=== PATIENT | female | born 1985 | race Caucasian/White ===

== ENCOUNTER → 2018-12-11 11:29 | Outpatient (CLI) | payer OTHER, SELFPAY ==
--- NOTE | 2018-12-11 11:31 | RAD_ITS ---
STUDY: X-RAY - PELVIS AND LEFT HIP REASON FOR EXAM: Female, 33 years old. Hip pain. TECHNIQUE: 3 views of the pelvis and hip. COMPARISON: None. FINDINGS: There is a non-specific bowel gas pattern. Normal visualized soft tissue structures. Normal bilateral iliac wings, sacroiliac joints and visualized sacrum. Normal bilateral superior and inferior pubic rami. Normal pubic symphysis. Normal bilateral ischial tuberosities. Status post a remote posterior slip capital femoral epiphysis that has been repaired with 1 partially threaded femoral head and neck screw. Marginal osteophytosis of the femoral head. Normal acetabulum. There is mild articular joint space narrowing of the hip. RAD/HIP, UNI W/ Pelvis 2-3 Views IMPRESSION: Mild degenerative arthrosis of the left hip status post remote slipped capital femoral epiphysis with screw stabilization. Electronically Signed: Jamia Ozuna MD at 18:13 EDT , Service support ,
== END ==
LOC: HPRAD 11:31
PROVIDERS: Referring Provider Orthopaedic Surgery; Visit Provider Orthopaedic Surgery
DX: M25.552 Pain in left hip (principal)
CPT/HCPCS: 73502

== ENCOUNTER 2019-01-13 08:00 | Outpatient (RCR) | payer OTHER, SELFPAY ==
--- NOTE | 2018-12-22 12:02 | HP.PTEVAL ---
Patient's Visit Information VANIA BUSBY is a 33 year old F referred to Physical Therapy by Amrit Estes DO with a diagnosis of L hip OA. Date of Evaluation: 12/22/18 Physical Therapist: Lenny Muñoz PT, ATC - Visit Plan Frequency: 2-3x /Week Duration: 4-6 Weeks Plan: L hip stretching and strengthening, balance and proprio, core stab ex's, nustep, and HEP - Subjective Findings: Pt reports she has had intermittent L hip pain since she had surgery at the age of 13. Pt reports this episode has been constant for the past 3 weeks. Pt reports she finally went to the orthopedic surgeon where she had xrqys taken which revealed OA. Pt surrently is employed by [employer] and is on her feet for 9 hours at a time. Pt denies L LE tingling or numbness. Pt notes sleep difficulty without the use of pain meds. Pt reports prolonged standing and walking increases pain. Pt also notes prolonged sitting increases pain. 4/10 pain at rest, 8/10 at worst (when she gets off work) - Pain L hip pain Pain Intensity (Out of 10): 4 Pain Intensity Range: 8 - Objective Neuro: B LE sensation is WNL to light touch. B patellar reflex= 2/3. MMT: L hip strength is 4-/5. All other B LE MMT is 5/5 throughout. ROM: BLE's are WNL. Gait: Pt is able to ambulate greater than 1000' without difficulty - Goals Goal 1:: Increase L LE strength x 1 grade to aid with IADL's Goal Time Frame: 4-6 Weeks Goal 2:: Decrease L hip pain x 50% to aid with sleep Goal Time Frame: 4-6 Weeks Goal 3:: I with HEP Goal Time Frame: 4-6 Weeks - Rehabilitation Potential Physical Therapy Diagnosis: Pt has L hip pain, weakness, and intol for prolonged ambulation secondary to L hip OA Rehabilitation Potential: Good - Anticipated Interventions Patient/Client Instruction: Educate patient on: Condition, Plan of Care For the Purpose of:: To improve self management Therapeutic Exercise to Include: Strength training, Endurance training, Balance training, Flexibilty training, Dynamic Lumbar Stabilization For the Purpose of:: To decrease pain, To improve muscle performance and motor function Cryotherapy (ice pack, ice massage): Yes For the Purpose of:: To decrease pain Thank you for the opportunity to evaluate your patient. For Medicare and Medicare HMO plans, please review the plan of care and approve it. It will need to be FAXED BACK to us at [phone] for Medicare purposes. For Medicare only, by signing this I certify the plan of care. Please let me know if there are questions or concerns regarding this plan of care. Physician Signature: Date:
--- NOTE | 2019-03-17 08:30 | HP.PT.NRP ---
HP - Discharge Summary (1) - Patient Information VANIA BUSBY was seen in my office for initial evaluation on 12/22/18. The following Plan of Care was established for this patient: Initial Frequency: 2-3x /Week Initial Duration: 4-6 Weeks - Anticipated Interventions Patient/Client Instruction: Educate patient on: Condition, Plan of Care For the Purpose of:: To improve self management Therapeutic Exercise to Include: Strength training, Endurance training, Balance training, Flexibilty training, Dynamic Lumbar Stabilization For the Purpose of:: To decrease pain, To improve muscle performance and motor function Cryotherapy (ice pack, ice massage): Yes For the Purpose of:: To decrease pain This patient was last seen in our office . Pertinent comments regarding their Physical therapy will appear below: Pt was treated for 6 PT visits for L hip pain through the date of 01/13/19. Pt has not returned through todays date, and is therefore discontinued at this time. At this point I will be discontinuing this patient from physical therapy. I would be happy to see this patient again in the future if found appropriate by the physician. Thank you! Lenny Muñoz, PT, ATC
== END 2019-01-13 19:00 | disposition home or self-care (01) ==
LOC: PT 08:00
PROVIDERS: Referring Provider Orthopaedic Surgery; Visit Provider Orthopaedic Surgery
DX: M16.12 Unilateral primary osteoarthritis, left hip (principal); M25.652 Stiffness of left hip, not elsewhere classified
CPT/HCPCS: 97110; 97161

== ENCOUNTER → 2021-09-10 | Outpatient (CLI) | payer OTHER, SELFPAY ==
[2021-09-10 13:03] LABS: Absolute Lymphocyte Count 3.01 X10^3/uL (0.83-4.51); Basophil# 0.03 X10^3/uL; Basophil% 0.4 % (0-1); Eosinophil# 0.17 X10^3/uL; Eosinophils% 2.5 % (0-5); Hematocrit 45.2 % (37-47); Hemoglobin 15.5 g/dL (12.0-15.0); Lymphocyte # 3.01 X10^3/ul (0.83-4.51); Lymphocyte % 44.7 % (19-41); Mean Corp Hgb Conc 34.3 g/dL (32-36); Mean Corpuscular Hgb 31.3 pg (27.0-32.0); Mean Corpuscular Volume 91.3 fL (81-99); Mean Platelet Vol. 10.6 fl (6.2-12.0); Monocyte% 7.4 % (0-10); NRBC Flagged by Analyzer 0 % (0-5); Neutrophil # 3.01 X10^3/uL (2.7-7.7); Neutrophil % 44.7 % (47-70); Platelet Count 290 K/mm3 (150-450); RBC Distribution Width CV 12.3 % (11.6-14.6); RBC Distribution Width SD 40.9 fl (35.1-43.9); Red Blood Count 4.95 M/mm3 (4.2-5.4); White Blood Count 6.7 K/mm3 (4.4-11.0)
[2021-09-10 13:27] LABS: Microalbumin,Random Urine 9.3 mg/L (NO RANGE EST.)
[2021-09-10 13:36] LABS: ALB/GLOB Ratio 0.8 RATIO (0.9-2.4); AST(SGOT) 18 U/L (15-37); Alanine Aminotransfer ALT/SGPT 32 U/L (13-56); Alkaline Phosphatase 48 U/L (45-117); Anion Gap 5 (5-15); BUN 14 mg/dL (7-18); BUN/Creat Ratio 14.4 RATIO (10-20); Calcium,Total 8.6 mg/dL (8.5-10.1); Chloride 104 mmol/L (98-107); Cholesterol 265 mg/dL (200); Creatinine, Serum 0.97 mg/dL (0.55-1.02); EST Glomerular Filtration Rate 69 mL/min (>60); Est Glom Filt Rate - Afr Amer 84 mL/min (>60); Ferritin 37 ng/mL (8-252); Globulin 3.6 g/dL (2.2-4.2); Glucose 107 mg/dL (74-106); High Density Lipoprotein 41 mg/dL; Potassium 3.8 mmol/L (3.5-5.1); Protein, Total 6.6 g/dL (6.4-8.2); Sodium Level 139 mmol/L (136-145); Thyroid Stim Hormone (TSH) 1.55 uIU/mL (0.358-3.74); Triglycerides 203 mg/dL; Very Low Density Lipoprotein 41 mg/dL (5-40)
[2021-09-10 13:38] LABS: Hemoglobin A1c 5.6 % (3.8-5.6)
[2021-09-10 14:48] LABS: Vitamin D,25 Hydroxy 9.5 ng/mL
== END | disposition home or self-care (01) ==
DX: E55.9 Vitamin D deficiency, unspecified (principal); R53.83 Other fatigue; U07.1 COVID-19; Z86.39 Personal history of other endocrine, nutritional and metabolic disease
CPT/HCPCS: 36415; 80053; 80061; 82043; 82306; 82728; 83036; 84443; 85025; 85379; 86769